=== PATIENT | male | born 1945 | race Caucasian/White ===

== ENCOUNTER 2016-08-30 07:52 | Outpatient (CLI) | payer MEDICARE | END 2016-08-30 07:53 | disposition home or self-care (01) | DX: D64.9 Anemia, unspecified (principal); M54.5 Low back pain; I12.9 Hypertensive chronic kidney disease with stage 1 through stage 4 chronic kidney disease, or unspecified chronic kidney disease; R73.01 Impaired fasting glucose; N18.2 Chronic kidney disease, stage 2 (mild); E78.5 Hyperlipidemia, unspecified ==

== ENCOUNTER 2016-10-28 13:05 | Day surgery (SDC) | payer MEDICARE ==
[2016-10-28] MEDS ORDERED: LACTATED RINGERS 1,000 ML IV ONE (14:16)
[2016-10-28] MEDS ORDERED: fentaNYL 100 MCG/2 ML VIAL IVP ONE (16:04)
[2016-10-28] MEDS ORDERED: MIDAZOLAM 2 MG/2 ML VIAL IVP ONE (16:04)
== END 2016-10-28 13:06 | disposition home or self-care (01) ==
PROC: 0DJD8ZZ Inspection of Lower Intestinal Tract, Via Natural or Artificial Opening Endoscopic (ICD-10-PCS; principal; 2016-10-28 15:15)
DX: Z12.11 Encounter for screening for malignant neoplasm of colon (principal); K64.8 Other hemorrhoids; K57.30 Diverticulosis of large intestine without perforation or abscess without bleeding; Z86.010 Personal history of colon polyps; G47.30 Sleep apnea, unspecified; I10 Essential (primary) hypertension; G43.909 Migraine, unspecified, not intractable, without status migrainosus
CPT/HCPCS: G0105; J7120

== ENCOUNTER 2016-12-30 09:28 | Outpatient (CLI) | payer MEDICARE ==
--- NOTE | 2016-12-30 12:52 | MRI Report ---
EXAM: MRI LUMBAR SPINE WITHOUT CONTRAST EXAM DATE: 12/30/2016 10:27 AM. CLINICAL HISTORY: Degenerative disk disease, lumbar spine, low back. Left-sided sciatica pain. Chroni c over the last 2 months. Intermittent for a few years. History of basal cell cancer. COMPARISON: Lumbar spine plain films 09/24/2013. TECHNIQUE: Multiplanar, multisequence T1-weighted and fluid-sensitive sequences of the lumbar spine f rom T12 to S1 without contrast. Other: None. FINDINGS: Spinal Cord: The conus terminates at L1. No signal abnormality in the visualized spinal cord. Alignment: 22 degree levorotatory scoliosis is seen centered at L2-L3. Mild, 4 mm, retrolisthesis is seen at L3-L4 and L4-L5. Bone Marrow: Five [id number] lumbar vertebral bodies are assumed. No gross fractures or bone les ions. No bone marrow edema. Diskogenic endplate irregularity with Modic type I signal changes seen at L2-L3. Diskogenic endplate irregularity with Modic type II signal change is seen at L3-L4 and L4-L5. Disk Levels/Facets: T12-L1: Unremarkable on sagittal series. L1-L2: Mild loss of disk space height is seen. Minimal dorsal and mild ventral circumferential disk b ulge is seen. Anterior osteophyte formation is noted. Mild effacement of descending left L2 nerve linden t is seen without lateral recess stenosis. L2-L3: Moderate right-sided and mild left-sided degenerative facet change is seen. Mild loss of disk space height is present. Diskogenic endplate irregularity and signal abnormality is seen. Mild dorsal and moderate ventral and right lateral circumferential disk bulge is seen. Moderate anterior and rig ht lateral osteophyte formation is seen. Effacement of the thecal sac with crowding of cauda equina n erve roots is seen. Mild canal stenosis. L3-L4: Mild to moderate degenerative facet changes seen bilaterally. Moderate loss of disk space heig ht is seen. Mild retrolisthesis. Patchy lateral and anterior osteophyte formation is seen. Effacement of the thecal sac and descending L4 nerve roots is seen. L4-L5: Mild right-sided and moderate left-sided degenerative facet change is seen. Moderate loss of d isk space height is seen. Moderate left lateral and anterior lateral osteophyte formation is seen. Mi ld retrolisthesis. Effacement of the thecal sac is noted. Effacement of exiting left L4 nerve root is seen. Moderate left foraminal stenosis. L5-S1: Mild degenerative facet changes seen bilaterally. Mild to moderate loss of disk space height i s seen. Moderate left lateral and mild ventral disk bulge is seen. Left lateral osteophyte formation is noted. Effacement of exited left L5 nerve root lateral to the foramen is seen. No stenosis. Musculature: Normal. No edema or fatty atrophy. Other: The partially visualized retroperitoneum is unremarkable. IMPRESSION: 1. Mild levorotatory scoliosis of the lumbar spine. Mild spondylotic retrolisthesis is seen at L3-L4 and L4-L5. 2. Spondylosis throughout the lumbar spine as discussed above. Degenerative disk and facet changes se en. 3. L2-L3: Mild canal stenosis. 4. L4-L5: Moderate left foraminal stenosis. Comment: The following findings are so common in adults without low back pain that while we report th eir presence, they must be interpreted with caution and in the context of the clinical situation. (Re tamie Mora et al, Spine 2001) Prevalence of findings in patients without low back pain: Disk degeneration (any evidence): 92% Disk desiccation/T2 signal loss: 83% Disk height loss: 56% Disk bulge: 64% Disk protrusion: 32% Annular tear/high intensity zone: 38% [facility] Referring Provider Line: [phone] SITE ID: [id number]
== END 2016-12-30 09:29 | disposition home or self-care (01) ==
LOC: DI 09:28
PROVIDERS: ATTEND Family Medicine
DX: M51.36 Other intervertebral disc degeneration, lumbar region (principal); M47.896 Other spondylosis, lumbar region; M43.16 Spondylolisthesis, lumbar region; M47.897 Other spondylosis, lumbosacral region; M41.86 Other forms of scoliosis, lumbar region
CPT/HCPCS: 72148

== ENCOUNTER 2017-09-15 08:00 | Outpatient (CLI) | payer MEDICARE ==
[2017-09-15 17:48] LABS: BASOPHILS % (AUTO) 1.2 %; EOSINOPHILS # (AUTO) 0.1 10^3/uL (0.0-0.7); EOSINOPHILS % (AUTO) 2.6 %; HGB - HEMOGLOBIN 13.1 g/dL (14.0-18.0); LYMPHOCYTES % (AUTO) 34.8 %; MEAN CORPUSCULAR HEMOGLOBIN 26.6 pg (27.0-31.0); MEAN CORPUSCULAR HGB CONC 32.6 g/dL (32.0-36.0); MEAN CORPUSCULAR VOLUME 81.7 fL (80.0-94.0); MEAN PLATELET VOLUME 8.8 fL (7.4-11.4); MONOCYTES # (AUTO) 0.3 10^3/uL (0.0-1.0); MONOCYTES % (AUTO) 11.2 %; NEUTROPHILS # (AUTO) 1.4 10^3/uL (1.5-6.6); NEUTROPHILS % (AUTO) 50.2 %; PLT - PLATELET COUNT 192 10^3/uL (130-450); RED BLOOD COUNT 4.93 10^6/uL (4.70-6.10); RED CELL DISTRIBUTION WIDTH 13.9 % (12.0-15.0); WHITE BLOOD COUNT 2.8 x10^3/uL (4.8-10.8)
[2017-09-15 17:49] LABS: ALBUMIN 4.1 g/dL (3.2-5.5); ALBUMIN/GLOBULIN RATIO 1.6 (1.0-2.2); ALKALINE PHOSPHATASE 41 IU/L (42-121); ALT ALANINE AMINOTRANSFERASE 19 IU/L (10-60); AST ASPARTATE AMINOTRANSFERASE 20 IU/L (10-42); BILIRUBIN,TOTAL 0.8 mg/dL (0.2-1.0); BUN - BLOOD UREA NITROGEN 18 mg/dL (6-20); CALCIUM 8.7 mg/dL (8.5-10.3); CARBON DIOXIDE - CO2 27 mmol/L (21-32); CHLORIDE 104 mmol/L (101-111); CHOL/HDL RATIO 3.7 (<5.0); CHOLESTEROL 185 mg/dL; CREATININE 0.8 mg/dL (0.6-1.2); GFR - MDRD 96 (>89); GLUCOSE 89 mg/dL (70-100); HDL CHOLESTEROL 50 mg/dL; LDL CHOLESTEROL,CALCULATED 113 mg/dL; LDL/HDL RATIO 2.3 (<3.6); SODIUM 138 mmol/L (135-145); TOTAL PROTEIN 6.7 g/dL (6.7-8.2); VLDL CHOLESTEROL 22 mg/dL
[2017-09-15 18:03] LABS: HB2 TOTAL 13.8 g/dL; HEMOGLOBIN A1C 0.49 g/dL; HEMOGLOBIN A1C % 5.4 % (4.6-6.2)
[2017-09-15 18:47] LABS: DIFFERENTIAL COMMENT MANUAL=AUTO DIFF; PLATELET ESTIMATE, MANUAL NORMAL (130-450,000) (NORMAL); PLATELET MORPHOLOGY NORMAL APPEARANCE (NORMAL); RBC MORPHOLOGY (MULTIPLE) NORMAL APPEARANCE (NORMAL)
== END 2017-09-15 08:01 | disposition home or self-care (01) ==
LOC: LAB.S 08:00
PROVIDERS: ATTEND Family Medicine
DX: D64.9 Anemia, unspecified (principal); R73.01 Impaired fasting glucose; N18.2 Chronic kidney disease, stage 2 (mild); E78.5 Hyperlipidemia, unspecified; I12.9 Hypertensive chronic kidney disease with stage 1 through stage 4 chronic kidney disease, or unspecified chronic kidney disease; E55.9 Vitamin D deficiency, unspecified; Z12.5 Encounter for screening for malignant neoplasm of prostate
CPT/HCPCS: 36415; 80053; 80061; 82306; 82728; 83036; 85025; G0103; 83721; 84153

== ENCOUNTER 2018-03-24 09:41 | Outpatient (CLI) | payer MEDICARE ==
[2018-03-24 18:54] LABS: ALBUMIN 4.1 g/dL (3.2-5.5); ALBUMIN/GLOBULIN RATIO 1.6 (1.0-2.2); ALKALINE PHOSPHATASE 47 IU/L (42-121); ALT ALANINE AMINOTRANSFERASE 21 IU/L (10-60); AST ASPARTATE AMINOTRANSFERASE 20 IU/L (10-42); BILIRUBIN,TOTAL 1.1 mg/dL (0.2-1.0); BUN - BLOOD UREA NITROGEN 14 mg/dL (6-20); CALCIUM 9.1 mg/dL (8.5-10.3); CARBON DIOXIDE - CO2 30 mmol/L (21-32); CHLORIDE 100 mmol/L (101-111); CHOL/HDL RATIO 4.3 (<5.0); CHOLESTEROL 213 mg/dL; GFR - MDRD 74 (>89); GLUCOSE 100 mg/dL (70-100); HDL CHOLESTEROL 50 mg/dL; LDL CHOLESTEROL,CALCULATED 137 mg/dL; LDL/HDL RATIO 2.7 (<3.6); SODIUM 138 mmol/L (135-145); TOTAL PROTEIN 6.7 g/dL (6.7-8.2); VLDL CHOLESTEROL 26 mg/dL
== END 2018-03-24 09:42 | disposition home or self-care (01) ==
LOC: LAB.F 09:41
PROVIDERS: ATTEND Internal Medicine
DX: E78.5 Hyperlipidemia, unspecified (principal); Z12.5 Encounter for screening for malignant neoplasm of prostate
CPT/HCPCS: 36415; 80053; 80061; G0103; 83721; 84153

== ENCOUNTER 2019-07-13 07:26 | Outpatient (CLI) | payer MEDICARE ==
[2019-07-13 10:18] LABS: ALBUMIN/GLOBULIN RATIO 1.4 (1.0-2.2); ALKALINE PHOSPHATASE 46 IU/L (42-121); ALT ALANINE AMINOTRANSFERASE 17 IU/L (10-60); AST ASPARTATE AMINOTRANSFERASE 19 IU/L (10-42); BILIRUBIN,TOTAL 1.2 mg/dL (0.2-1.0); BUN - BLOOD UREA NITROGEN 14 mg/dL (6-20); CALCIUM 9.1 mg/dL (8.5-10.3); CARBON DIOXIDE - CO2 29 mmol/L (21-32); CHLORIDE 100 mmol/L (101-111); CHOL/HDL RATIO 3.8 (<5.0); CHOLESTEROL 199 mg/dL; CREATININE 1.2 mg/dL (0.6-1.2); GFR - MDRD 60 (>89); GLUCOSE 105 mg/dL (70-100); HDL CHOLESTEROL 53 mg/dL; LDL CHOLESTEROL,CALCULATED 116 mg/dL; LDL/HDL RATIO 2.2 (<3.6); SODIUM 137 mmol/L (135-145); TOTAL PROTEIN 6.9 g/dL (6.7-8.2); VLDL CHOLESTEROL 30 mg/dL
[2019-07-13 10:28] LABS: HB2 TOTAL 15.1 g/dL; HEMOGLOBIN A1C 0.64 g/dL
== END 2019-07-13 07:27 | disposition home or self-care (01) ==
LOC: LAB.S 07:26
PROVIDERS: ATTEND Internal Medicine
DX: E78.5 Hyperlipidemia, unspecified (principal); R73.01 Impaired fasting glucose; Z12.5 Encounter for screening for malignant neoplasm of prostate
CPT/HCPCS: 36415; 80053; 80061; 83036; G0103; 83721; 84153

== ENCOUNTER 2020-08-25 07:01 | Outpatient (CLI) | payer MEDICARE ==
[2020-08-25 15:27] LABS: BASOPHILS # (AUTO) 0.1 10^3/uL (0.0-0.1); BASOPHILS % (AUTO) 1.7 %; EOSINOPHILS # (AUTO) 0.2 10^3/uL (0.0-0.7); EOSINOPHILS % (AUTO) 4.4 %; HCT - HEMATOCRIT 40.2 % (42.0-52.0); LYMPHOCYTES # (AUTO) 1.3 10^3/uL (1.5-3.5); MEAN CORPUSCULAR HEMOGLOBIN 26.1 pg (27.0-31.0); MEAN CORPUSCULAR HGB CONC 29.9 g/dL (32.0-36.0); MEAN CORPUSCULAR VOLUME 87.4 fL (80.0-94.0); MEAN PLATELET VOLUME 10.5 fL (7.4-11.4); MONOCYTES # (AUTO) 0.4 10^3/uL (0.0-1.0); MONOCYTES % (AUTO) 9.9 %; NEUTROPHILS # (AUTO) 1.8 10^3/uL (1.5-6.6); NEUTROPHILS % (AUTO) 48.7 %; PLT - PLATELET COUNT 196 10^3/uL (130-450); WHITE BLOOD COUNT 3.6 x10^3/uL (4.8-10.8)
[2020-08-25 15:52] LABS: ALBUMIN/GLOBULIN RATIO 1.5 (1.0-2.2); ALKALINE PHOSPHATASE 44 IU/L (42-121); ALT ALANINE AMINOTRANSFERASE 18 IU/L (10-60); AST ASPARTATE AMINOTRANSFERASE 20 IU/L (10-42); BILIRUBIN,TOTAL 0.8 mg/dL (0.2-1.0); BUN - BLOOD UREA NITROGEN 16 mg/dL (6-20); CALCIUM 9.1 mg/dL (8.5-10.3); CARBON DIOXIDE - CO2 28 mmol/L (21-32); CHLORIDE 105 mmol/L (101-111); CHOL/HDL RATIO 3.7 (<5.0); CHOLESTEROL 197 mg/dL; CREATININE 1.1 mg/dL (0.6-1.2); GFR - MDRD 66 (>89); GLUCOSE 110 mg/dL (70-100); HDL CHOLESTEROL 53 mg/dL; LDL CHOLESTEROL,CALCULATED 118 mg/dL; LDL/HDL RATIO 2.2 (<3.6); POTASSIUM 4.3 mmol/L (3.5-5.0); SODIUM 140 mmol/L (135-145); TOTAL PROTEIN 6.7 g/dL (6.7-8.2); TRIGLYCERIDES 131 mg/dL; VLDL CHOLESTEROL 26 mg/dL
== END 2020-08-25 07:02 | disposition home or self-care (01) ==
LOC: LAB.S 07:01
PROVIDERS: ATTEND Internal Medicine
DX: I10 Essential (primary) hypertension (principal); Z12.5 Encounter for screening for malignant neoplasm of prostate
CPT/HCPCS: 36415; 80053; 80061; 85025; G0103; 83721; 84153

== ENCOUNTER 2021-02-28 07:06 | Outpatient (CLI) | payer MEDICARE ==
[2021-02-28 15:15] LABS: BASOPHILS # (AUTO) 0.1 10^3/uL (0.0-0.1); BASOPHILS % (AUTO) 1.5 %; EOSINOPHILS # (AUTO) 0.2 10^3/uL (0.0-0.7); EOSINOPHILS % (AUTO) 5.1 %; HCT - HEMATOCRIT 43.2 % (42.0-52.0); HGB - HEMOGLOBIN 13.2 g/dL (14.0-18.0); LYMPHOCYTES # (AUTO) 1.2 10^3/uL (1.5-3.5); LYMPHOCYTES % (AUTO) 36.3 %; MEAN CORPUSCULAR HEMOGLOBIN 27.2 pg (27.0-31.0); MEAN CORPUSCULAR HGB CONC 30.6 g/dL (32.0-36.0); MEAN CORPUSCULAR VOLUME 89.1 fL (80.0-94.0); MONOCYTES # (AUTO) 0.4 10^3/uL (0.0-1.0); MONOCYTES % (AUTO) 11.1 %; NEUTROPHILS # (AUTO) 1.5 10^3/uL (1.5-6.6); NEUTROPHILS % (AUTO) 45.7 %; PLT - PLATELET COUNT 197 10^3/uL (130-450); RED BLOOD COUNT 4.85 10^6/uL (4.70-6.10); RED CELL DISTRIBUTION WIDTH 13.8 % (12.0-15.0); WHITE BLOOD COUNT 3.3 x10^3/uL (4.8-10.8)
== END 2021-02-28 07:07 | disposition home or self-care (01) ==
LOC: LAB.S 07:06
PROVIDERS: ATTEND Internal Medicine
DX: D64.9 Anemia, unspecified (principal)
CPT/HCPCS: 36415; 85025

== ENCOUNTER 2021-09-04 07:08 | Outpatient (CLI) | payer MEDICARE ==
[2021-09-04 15:03] LABS: BASOPHILS % (AUTO) 0.9 %; EOSINOPHILS # (AUTO) 0.2 10^3/uL (0.0-0.7); EOSINOPHILS % (AUTO) 4.9 %; HCT - HEMATOCRIT 43.1 % (42.0-52.0); HGB - HEMOGLOBIN 13.7 g/dL (14.0-18.0); LYMPHOCYTES # (AUTO) 1.3 10^3/uL (1.5-3.5); LYMPHOCYTES % (AUTO) 35.9 %; MEAN CORPUSCULAR HEMOGLOBIN 27.8 pg (27.0-31.0); MEAN CORPUSCULAR HGB CONC 31.8 g/dL (32.0-36.0); MEAN CORPUSCULAR VOLUME 87.4 fL (80.0-94.0); MEAN PLATELET VOLUME 10.3 fL (7.4-11.4); MONOCYTES # (AUTO) 0.4 10^3/uL (0.0-1.0); MONOCYTES % (AUTO) 10.6 %; NEUTROPHILS # (AUTO) 1.6 10^3/uL (1.5-6.6); NEUTROPHILS % (AUTO) 47.1 %; PLT - PLATELET COUNT 188 10^3/uL (130-450); RED BLOOD COUNT 4.93 10^6/uL (4.70-6.10); RED CELL DISTRIBUTION WIDTH 13.3 % (12.0-15.0); WHITE BLOOD COUNT 3.5 x10^3/uL (4.8-10.8)
[2021-09-04 15:15] LABS: ALBUMIN 4.1 g/dL (3.2-5.5); ALBUMIN/GLOBULIN RATIO 1.6 (1.0-2.2); ALKALINE PHOSPHATASE 44 IU/L (42-121); ALT ALANINE AMINOTRANSFERASE 19 IU/L (10-60); AST ASPARTATE AMINOTRANSFERASE 21 IU/L (10-42); BILIRUBIN,TOTAL 0.8 mg/dL (0.2-1.0); BUN - BLOOD UREA NITROGEN 20 mg/dL (6-20); CALCIUM 8.9 mg/dL (8.5-10.3); CARBON DIOXIDE - CO2 28 mmol/L (21-32); CHLORIDE 101 mmol/L (101-111); CHOL/HDL RATIO 3.9 (<5.0); CHOLESTEROL 223 mg/dL; CREATININE 1.1 mg/dL (0.6-1.2); GFR - MDRD 65 (>89); GLUCOSE 101 mg/dL (70-100); HDL CHOLESTEROL 57 mg/dL; LDL CHOLESTEROL,CALCULATED 136 mg/dL; LDL/HDL RATIO 2.4 (<3.6); SODIUM 137 mmol/L (135-145); TOTAL PROTEIN 6.6 g/dL (6.7-8.2); TRIGLYCERIDES 149 mg/dL; VLDL CHOLESTEROL 30 mg/dL
== END 2021-09-04 07:09 | disposition home or self-care (01) ==
LOC: LAB.S 07:08
PROVIDERS: ATTEND Internal Medicine
DX: I10 Essential (primary) hypertension (principal); E78.5 Hyperlipidemia, unspecified; D64.9 Anemia, unspecified
CPT/HCPCS: 36415; 80053; 80061; 82728; 83721; 85025

== ENCOUNTER 2022-10-15 07:07 | Outpatient (CLI) | payer MEDICARE ==
[2022-10-15 14:47] LABS: BASOPHILS % (AUTO) 0.6 %; EOSINOPHILS # (AUTO) 0.1 10^3/uL (0.0-0.7); EOSINOPHILS % (AUTO) 3.5 %; HCT - HEMATOCRIT 44.4 % (42.0-52.0); HGB - HEMOGLOBIN 13.9 g/dL (14.0-18.0); LYMPHOCYTES # (AUTO) 1.2 10^3/uL (1.5-3.5); LYMPHOCYTES % (AUTO) 35.3 %; MEAN CORPUSCULAR HEMOGLOBIN 27.4 pg (27.0-31.0); MEAN CORPUSCULAR HGB CONC 31.3 g/dL (32.0-36.0); MEAN CORPUSCULAR VOLUME 87.4 fL (80.0-94.0); MEAN PLATELET VOLUME 10.1 fL (7.4-11.4); MONOCYTES # (AUTO) 0.4 10^3/uL (0.0-1.0); MONOCYTES % (AUTO) 12.5 %; NEUTROPHILS # (AUTO) 1.6 10^3/uL (1.5-6.6); NEUTROPHILS % (AUTO) 47.2 %; PLT - PLATELET COUNT 196 10^3/uL (130-450); RED BLOOD COUNT 5.08 10^6/uL (4.70-6.10); RED CELL DISTRIBUTION WIDTH 13.9 % (12.0-15.0); WHITE BLOOD COUNT 3.4 x10^3/uL (4.8-10.8)
[2022-10-15 15:10] LABS: ALBUMIN 3.9 g/dL (3.2-5.5); ALBUMIN/GLOBULIN RATIO 1.4 (1.0-2.2); ALKALINE PHOSPHATASE 42 IU/L (42-121); ALT ALANINE AMINOTRANSFERASE 21 IU/L (10-60); AST ASPARTATE AMINOTRANSFERASE 19 IU/L (10-42); BILIRUBIN,TOTAL 0.7 mg/dL (0.2-1.0); BUN - BLOOD UREA NITROGEN 20 mg/dL (6-20); CALCIUM 8.8 mg/dL (8.5-10.3); CARBON DIOXIDE - CO2 29 mmol/L (21-32); CHLORIDE 108 mmol/L (101-111); CHOL/HDL RATIO 3.2 (<5.0); CHOLESTEROL 195 mg/dL; GFR - MDRD 73 (>89); GLUCOSE 107 mg/dL (70-100); HDL CHOLESTEROL 61 mg/dL; LDL CHOLESTEROL,CALCULATED 114 mg/dL; LDL/HDL RATIO 1.9 (<3.6); POTASSIUM 4.4 mmol/L (3.5-5.0); SODIUM 142 mmol/L (135-145); TOTAL PROTEIN 6.7 g/dL (6.7-8.2); TRIGLYCERIDES 100 mg/dL; VLDL CHOLESTEROL 20 mg/dL
== END 2022-10-15 07:08 | disposition home or self-care (01) ==
LOC: LAB.S 07:07
PROVIDERS: ATTEND Internal Medicine
DX: G25.81 Restless legs syndrome (principal); E78.5 Hyperlipidemia, unspecified; I10 Essential (primary) hypertension
CPT/HCPCS: 36415; 80053; 80061; 82728; 83721; 85025

== ENCOUNTER 2023-09-02 08:01 | Outpatient (CLI) | payer MEDICARE ==
[2023-09-02 15:17] LABS: BASOPHILS % (AUTO) 0.8 %; EOSINOPHILS # (AUTO) 0.1 10^3/uL (0.0-0.7); EOSINOPHILS % (AUTO) 3.1 %; HCT - HEMATOCRIT 43.9 % (42.0-52.0); HGB - HEMOGLOBIN 14.1 g/dL (14.0-18.0); LYMPHOCYTES # (AUTO) 1.4 10^3/uL (1.5-3.5); LYMPHOCYTES % (AUTO) 37.8 %; MEAN CORPUSCULAR HEMOGLOBIN 28.1 pg (27.0-31.0); MEAN CORPUSCULAR HGB CONC 32.1 g/dL (32.0-36.0); MEAN CORPUSCULAR VOLUME 87.6 fL (80.0-94.0); MEAN PLATELET VOLUME 9.8 fL (7.4-11.4); MONOCYTES # (AUTO) 0.4 10^3/uL (0.0-1.0); MONOCYTES % (AUTO) 9.4 %; NEUTROPHILS # (AUTO) 1.8 10^3/uL (1.5-6.6); NEUTROPHILS % (AUTO) 48.4 %; PLT - PLATELET COUNT 202 10^3/uL (130-450); RED BLOOD COUNT 5.01 10^6/uL (4.70-6.10); RED CELL DISTRIBUTION WIDTH 13.7 % (12.0-15.0); WHITE BLOOD COUNT 3.8 x10^3/uL (4.8-10.8)
[2023-09-02 17:03] LABS: ALBUMIN/GLOBULIN RATIO 1.6 (1.0-2.2); ALKALINE PHOSPHATASE 48 IU/L (42-121); ALT ALANINE AMINOTRANSFERASE 23 IU/L (10-60); AST ASPARTATE AMINOTRANSFERASE 21 IU/L (10-42); BILIRUBIN,TOTAL 0.7 mg/dL (0.2-1.0); BUN - BLOOD UREA NITROGEN 19 mg/dL (6-20); CALCIUM 9.5 mg/dL (8.5-10.3); CARBON DIOXIDE - CO2 31 mmol/L (21-32); CHLORIDE 104 mmol/L (101-111); CHOL/HDL RATIO 4.1 (<5.0); CHOLESTEROL 204 mg/dL; CREATININE 1.2 mg/dL (0.6-1.3); GFR - MDRD 59 (>89); GLUCOSE 94 mg/dL (74-104); HDL CHOLESTEROL 50 mg/dL; LDL CHOLESTEROL,CALCULATED 121 mg/dL; LDL/HDL RATIO 2.4 (<3.6); POTASSIUM 4.6 mmol/L (3.5-4.5); SODIUM 139 mmol/L (135-145); TOTAL PROTEIN 6.5 g/dL (6.4-8.9); TRIGLYCERIDES 166 mg/dL (48-352); VLDL CHOLESTEROL 33 mg/dL
[2023-09-02 22:40] LABS: ESTIMATED AVERAGE GLUCOSE 114 mg/dL (70-100); HEMOGLOBIN A1c% 5.6 % (4.27-6.07)
== END 2023-09-02 08:02 | disposition home or self-care (01) ==
LOC: LAB.S 08:01
PROVIDERS: ATTEND Internal Medicine
DX: I10 Essential (primary) hypertension (principal); E78.5 Hyperlipidemia, unspecified; R73.01 Impaired fasting glucose; D64.9 Anemia, unspecified; Z12.5 Encounter for screening for malignant neoplasm of prostate
CPT/HCPCS: 36415; 80053; 80061; 83036; 85025; G0103; 83721; 84153

== ENCOUNTER 2023-11-27 12:14 | Outpatient (CLI) | payer MEDICARE | END 2023-11-27 12:15 | disposition home or self-care (01) | LOC: SC 12:14 | PROVIDERS: ATTEND Nurse Practitioner Family | DX: G47.33 Obstructive sleep apnea (adult) (pediatric) (principal); R09.02 Hypoxemia; E66.9 Obesity, unspecified; Z68.32 Body mass index [BMI] 32.0-32.9, adult | CPT/HCPCS: G0399 ×2; 95806 ==

== ENCOUNTER 2023-12-04 14:01 | Outpatient (CLI) | payer MEDICARE ==
--- NOTE | 2023-12-04 14:45 | SLEEP CARE CONSULTATION ---
Information from patient questionnaire entered by Kira Maki. I have reviewed and concur with the information entered by Kira Maki. This document represents the service I personally performed and the decisions made by , Rebekah Lincoln ARNP. History of Present Illness Service Date and Time: 12/04/2023 1401 Initial [place] Sleepiness Scale score: 5 (10/16/23) Current [place] Sleepiness Scale score: 5 (12/04/23) Additional HPI information: HANNAH LYNCH returns for follow up and results of the recently performed home sleep study. The sleep study showed mild obstructive sleep apnea with an average AHI of 14.9 and christi oxygen saturation of 72%. I explained the pathophysiology behind obstructive sleep apnea. We then spent quite a bit of time discussing different treatment options. For mild obstructive sleep apnea, surgery and oral appliance are alternatives to nasal CPAP therapy but in moderate or severe cases, nasal CPAP is the most effective and reliable treatment. I reviewed the impact of weight changes on sleep apnea and strongly recommended losing weight. Sleep Study - Results Type of Sleep Study: Home sleep study (COMPLETED 11/27/23) Prior sleep studies: Yes Polysomnography/Home Sleep Study results: Physician Impression: The quality of the study is good. The length of the study is adequate (> 240 minutes). Please also see the tabulated and graphic data. 1. Obstructive Sleep Apnea-Hypopnea (ICD-10 G47.33), mild, with an AHI of 14.9/hr and christi SaO2 of 72%. During the study, the patient had 32 apneas (32 obstructive, 0 central, 0 mixed) and 33 hypopneas. The longest episode lasted 82.0 seconds. The respiratory events occurred independently of sleep stage and body position (supine AHI was 14.3 and non-supine, 17.68). 2. Hypoxemia (ICD-10 R09.02), moderate, with the lowest oxygen saturation of 72 % and 75.4 minutes with SaO2 under 90%. Baseline oxygen saturation was normal (Average oxygen saturation was 90%). Allergies and Home Medications Known drug allergies: Yes (as listed) Drug allergies reviewed: Yes Home medication list reviewed: Yes (no changes) Allergy and home medication list: Allergies lisinopril Adverse Reaction (Verified 12/04/23 10:08) Unknown cough Review of Systems Review of systems same as previous: Yes (back surgery December 2023) Physical Exam Vital signs obtained and entered by: KIRA Serrano MA Blood Pressure: 141/83 (RIGHT ARM) Cuff size: regular Heart Rate: 63 O2 Saturation: 96 Height: 5 ft 11 in Weight: 234 lb 3.2 oz Body Mass Index: 32.6 BMI Classification: Obese Impression and Plan 1. Obstructive Sleep Apnea-Hypopnea Syndrome, mild, with lowest oxygen saturation of 72%. Positive pressure therapy could benefit hypertension, cardiac disease, gastric reflux and RLS. Hannah was not convinced that he has sleep apnea even after I presented the results of his sleep study. I did strongly r ecommend treatment, including CPAP and oral mandibular advancement device. I also offered to have him repeat study in sleep lab. He declined everything at this time. He is concerned how this might affect his surgery in December. He will follow up with us should he decide to pursue any treatment. 2. Hypoxemia, moderate, with a christi oxygen saturation of 72% and 75.4 minutes spent under 90%. The baseline oxygen saturation was normal with an average oxygen saturation of 90%. 3. Obesity, unspecified. Currently patients BMI is 32.6. Obesity increases the risk of apnea, CPAP pressure requirements and overall health risks especially cardiovascular and diabetes. * Patient declined treatment at this time * Attempt to lose weight. * Return as needed for further evaluation and treatment for his RODERICK. Counseling Topics: Weight loss health impact Follow up with Sleep Care in: as needed Visit Type: In Office Time Spent with Patient (minutes): 22 Provider Statement: I spent 100% of the Face to Face Visit with the patient with greater than 50% spent counseling the patient and coordination of care.
[2023-12-04 14:46] VITALS: BP 141/83; O2SAT 96
== END 2023-12-04 14:02 | disposition home or self-care (01) ==
LOC: SC 14:01
PROVIDERS: ATTEND Nurse Practitioner Family
DX: G47.33 Obstructive sleep apnea (adult) (pediatric) (principal); R09.02 Hypoxemia; E66.9 Obesity, unspecified; Z68.32 Body mass index [BMI] 32.0-32.9, adult
CPT/HCPCS: 99213; G0463; 99212

== ENCOUNTER 2023-12-31 07:02 | Outpatient (CLI) | payer MEDICARE ==
[2023-12-31 14:55] LABS: EOSINOPHILS # (AUTO) 0.2 10^3/uL (0.0-0.7); HCT - HEMATOCRIT 45.5 % (42.0-52.0); LYMPHOCYTES # (AUTO) 1.3 10^3/uL (1.5-3.5); LYMPHOCYTES % (AUTO) 31.7 %; MEAN CORPUSCULAR HEMOGLOBIN 27.7 pg (27.0-31.0); MEAN CORPUSCULAR HGB CONC 30.8 g/dL (32.0-36.0); MEAN CORPUSCULAR VOLUME 89.9 fL (80.0-94.0); MEAN PLATELET VOLUME 10.4 fL (7.4-11.4); MONOCYTES # (AUTO) 0.4 10^3/uL (0.0-1.0); MONOCYTES % (AUTO) 10.2 %; NEUTROPHILS # (AUTO) 2.1 10^3/uL (1.5-6.6); NEUTROPHILS % (AUTO) 52.6 %; PLT - PLATELET COUNT 195 10^3/uL (130-450); RED BLOOD COUNT 5.06 10^6/uL (4.70-6.10)
[2023-12-31 15:51] LABS: CALCIUM 9.3 mg/dL (8.5-10.3); POTASSIUM 4.6 mmol/L (3.5-4.5)
[2023-12-31 22:53] LABS: ESTIMATED AVERAGE GLUCOSE 114 mg/dL (70-100); HEMOGLOBIN A1c% 5.6 % (4.27-6.07)
== END 2023-12-31 07:03 | disposition home or self-care (01) ==
LOC: LAB.S 07:02
PROVIDERS: ATTEND Family Medicine
DX: Z01.812 Encounter for preprocedural laboratory examination (principal); R73.9 Hyperglycemia, unspecified
CPT/HCPCS: 36415; 80048; 83036; 85025

== ENCOUNTER 2024-01-13 19:11 | Emergency (ER) | payer MEDICARE ==
--- NOTE | 2024-01-13 20:10 | ED Physician Documentation ---
PD HPI LOWER EXT INJURY - Stated complaint Stated Complaint: LT FOOT PX - Chief complaint Chief Complaint: Ext Problem - Additional information Additional information: 78-year-old male With history of hypertension, hypercholesterolemia, chronic vision loss, osteoarthritis presents emergency department for left leg/thigh swelling. He had spinal surgery 01/05/2024 Without any complications. Patient says overall he has been recovering well he has been using walker as advised but he started noticing some left lower extremity pain and swelling yesterday. He originally went to the clinic who sent him to the emergency department for a venous duplex to rule out possible DVT. Patient also states while he was in the waiting room he started to experience some chest pain to his mid sternum area. No history of PE or DVTs, his sister did of a pulmonary embolism when she is around her 60s. No known diagnoses of any blood clotting disorders no known cancer. PD PAST MEDICAL HISTORY - Past Medical History Past Medical History: Yes Cardiovascular: Hypertension, High cholesterol Respiratory: None Endocrine/Autoimmune: None GI: Colon polyps : None HEENT: Chronic vision loss Psych: None Musculoskeletal: Osteoarthritis, Chronic back pain Derm: None - Past Surgical History General: Colonoscopy Ortho: Spine surgery, Other HEENT: Cataracts Derm: Skin cancer surgery - Present Medications Home Medications: Ambulatory Orders Medication Instructions Recorded Confirmed Gabapentin 600 mg PO QPM 10/28/16 11/18/23 Losartan [Cozaar] 50 mg PO DAILY 10/28/16 11/18/23 Simvastatin 20 mg PO QPM 10/28/16 11/18/23 Omeprazole See Rx Instructions .ROUTE .COMPLEX 11/13/23 11/18/23 Rivaroxaban [Xarelto] 15 mg PO BID 21 Days #42 tablet 01/13/24 - Allergies Allergies/Adverse Reactions: Allergies Allergy/AdvReac Type Severity Reaction Status Date / Time lisinopril AdvReac Unknown Verified 01/13/24 19:34 - Social History Does the pt smoke?: No Smoking Status: Never smoker Does the pt drink ETOH?: Yes Does the pt have substance abuse?: No - Immunizations Immunizations are current?: Yes - POLST Patient has POLST: No PD ED PE NORMAL - Vitals Vital signs reviewed: Yes - General General: Alert and oriented X 3, No acute distress, Well developed/nourished - HEENT HEENT: Atraumatic - Cardiac Cardiac: RRR, No murmur, Strong equal pulses, Other (paced HR) - Respiratory Respiratory: No respiratory distress, Clear bilaterally - Abdomen Abdomen: Soft, Non tender - Back Back: No CVA TTP - Derm Derm: Normal color, Warm and dry, No rash - Extremities Extremities: Other (LLE swelling from thigh down) Results - Vitals Vitals: Vital Signs - 24 hr 01/13/24 01/13/24 19:28 23:48 Temperature 36.4 C L Heart Rate 59 L 63 Respiratory 18 18 Rate Blood Pressure 144/78 H 148/82 H O2 Saturation 98 100 Oxygen O2 Source Room air - EKG (time done) 2014 EKG releavant findings:: EKG personally interpreted by author of this note. Relevant findings are: Rate: Rate (enter#) (62) Rhythm: Other (A-V dual paced) Ischemia: Normal ST segments Computer interpretation: Agree with computer - Labs Labs: Laboratory Tests 01/13/24 01/13/24 20:58 20:58 WBC 8.3 RBC 4.40 L Hgb 12.2 L Hct 38.6 L MCV 87.7 MCH 27.7 MCHC 31.6 L RDW 13.4 Plt Count 188 MPV 9.0 Neut # (Auto) 5.9 Lymph # (Auto) 1.4 L [place] # (Auto) 0.7 Eos # (Auto) 0.1 Baso # (Auto) 0.0 Absolute Nucleated RBC 0.00 Nucleated RBC % 0.0 Sodium 137 Potassium 4.5 Chloride 102 Carbon Dioxide 30 Anion Gap 5.0 L BUN 20 Creatinine 1.0 Estimated GFR (MDRD) 72 L Glucose 111 H Calcium 9.4 Magnesium 1.8 Total Bilirubin 0.6 AST 12 ALT 23 Alkaline Phosphatase 52 Total Protein 6.5 Albumin 3.9 Globulin 2.6 Albumin/Globulin Ratio 1.5 Lipase < 10 L - Rads (name of study) Angio chest with and without Relevant Findings:: Final report received, EMP independent interpretation of test, Other (Acute pulmonary emboli involving the right middle and right lower lobe pulmonary arteries without evidence of acute right heart strain. No pulmonary infarction.) Left lower extremity venous duplex Relevant Findings:: Final report received, EMP independent interpretation of test, Other (Deep venous fibrosis of the popliteal vein extending to the calf) PD Medical Decision Making - ED course ED course: 78-year-old male presents emergency department for left lower extremity pain and swelling after surgical procedure about a week ago. Venous duplex was complete and does reveal a DVT of the popliteal vein extending into the calf. Patient also reported that he was having some chest pain so CT chest angio with contrast was also complete for further evaluation of possible pulmonary embolism and patient does appear to have acute pulmonary emboli involving the right middle and right lower lobe pulmonary arteries without evidence of acute right sided heart failure strain. We ambulated patient with pulse ox and that he had no hypoxia with ambulation. Patient denies any shortness of breath with ambulation as well. He was started on Lovenox shot here in the emergency department for anticoagulation. Pesi score 87 points. With shared decision making patient is overall very well-appearing very reliable for patient as well as his a prescription of Eliquis was sent to patient's preferred pharmacy and they were given very strict return precautions. He is very hemodynamically stable he has no hypoxia no tachycardia stable blood pressure. Patient was told to let his primary care provider know tomorrow about today's ER visit and new pulmonary embolism and DVT and told if he feels any worse or if symptoms get any worse to present back to the emergency department immediately. Patient as well as his are very reliable And understand return precautions. Departure - Departure Disposition: 01 Home, Self Care Clinical Impression: DVT (deep venous thrombosis), Pulmonary embolism Instructions: Rivaroxaban oral tablets, Embolism Pulmonary Dc Prescriptions: Rivaroxaban [Xarelto] 15 mg PO BID 21 Days #42 tablet Comments: Thank you for trusting us with your care. We have identified that you have a DVT on your left lower extremity as well as a pulmonary embolism without right heart strain. Please let your surgeon know about today's findings and please follow-up with your primary care provider to let them know about your DVT and pulmonary embolism. We have given you Lovenox shot here in the emergency department tonight and we are starting you on Eliquis tomorrow you will take this twice a day for the next 21 days and then your primary care provider will need to order a refill for 20 mg once daily. Please have a very low threshold to come back to the emergency department if you have any worsening symptoms and be very cautious to prevent from falls and know that you are at risk for bleeding. Forms: PCP List Discharge Date/Time: 01/13/24 23:50
[2024-01-13 21:04] LABS: BASOPHILS % (AUTO) 0.4 %; EOSINOPHILS # (AUTO) 0.1 10^3/uL (0.0-0.7); EOSINOPHILS % (AUTO) 1.6 %; HCT - HEMATOCRIT 38.6 % (42.0-52.0); HGB - HEMOGLOBIN 12.2 g/dL (14.0-18.0); LYMPHOCYTES # (AUTO) 1.4 10^3/uL (1.5-3.5); LYMPHOCYTES % (AUTO) 16.7 %; MEAN CORPUSCULAR HEMOGLOBIN 27.7 pg (27.0-31.0); MEAN CORPUSCULAR HGB CONC 31.6 g/dL (32.0-36.0); MEAN CORPUSCULAR VOLUME 87.7 fL (80.0-94.0); MONOCYTES # (AUTO) 0.7 10^3/uL (0.0-1.0); MONOCYTES % (AUTO) 8.3 %; NEUTROPHILS # (AUTO) 5.9 10^3/uL (1.5-6.6); NEUTROPHILS % (AUTO) 71.1 %; PLT - PLATELET COUNT 188 10^3/uL (130-450); RED CELL DISTRIBUTION WIDTH 13.4 % (12.0-15.0); WHITE BLOOD COUNT 8.3 x10^3/uL (4.8-10.8)
[2024-01-13] MEDS: ENOXAPARIN 100 MG/ML SYRINGE SUBQ STA (21:10)
[2024-01-13 21:16] LABS: ALBUMIN 3.9 g/dL (3.2-5.5); ALBUMIN/GLOBULIN RATIO 1.5 (1.0-2.2); ALKALINE PHOSPHATASE 52 IU/L (42-121); ALT ALANINE AMINOTRANSFERASE 23 IU/L (10-60); AST ASPARTATE AMINOTRANSFERASE 12 IU/L (10-42); BILIRUBIN,TOTAL 0.6 mg/dL (0.2-1.0); BUN - BLOOD UREA NITROGEN 20 mg/dL (6-20); CALCIUM 9.4 mg/dL (8.5-10.3); CARBON DIOXIDE - CO2 30 mmol/L (21-32); CHLORIDE 102 mmol/L (101-111); GFR - MDRD 72 (>89); GLUCOSE 111 mg/dL (74-104); MAGNESIUM 1.8 mg/dL (1.7-2.3); POTASSIUM 4.5 mmol/L (3.5-4.5); SODIUM 137 mmol/L (135-145); TOTAL PROTEIN 6.5 g/dL (6.4-8.9)
[2024-01-13 21:18] LABS: LIPASE < 10 U/L (11-82)
[2024-01-13] MEDS ORDERED: iohexoL-300 100 ML VIAL ONE (21:33)
--- NOTE | 2024-01-13 21:55 | Ultrasound Report ---
PROCEDURE: Duplex Ext Veins Left INDICATIONS: atraumatic LLE swelling TECHNIQUE: Real-time imaging, as well as color and pulse Doppler interrogation, were performed of the lower extr emity deep veins from the inguinal ligament to the popliteal fossa. Attempted visualization of the ca lf veins was performed. COMPARISON: None. FINDINGS: There is an occlusive filling defect within the popliteal vein, extending into the proximal calf veins. The superficial femoral vein and common femoral vein are widely patent. IMPRESSION: Deep venous thrombosis of the popliteal vein extending to the calf veins. Agree with preliminary interpretation provided to the ordering provider by the ultrasound technologis t. Reviewed by: Kirill Yang MD on 01/13/2024 9:54 PM PDT Approved by: Kirill Yang MD on 01/13/2024 9:54 PM PDT Station ID: [id number]
[2024-01-13] MEDS: iohexoL-300 100 ML VIAL IVP ONE (22:19)
--- NOTE | 2024-01-13 22:55 | CT Report ---
PROCEDURE: Angio Chest INDICATIONS: +DVT, new onset chest pain CONTRAST: OMNI 300, 80mls TECHNIQUE: After the administration of intravenous contrast, 2 mm axial images were acquired from the pulmonary apices to the posterior costophrenic angles during the arterial phase. In addition, 1 mm lung kernel and 5 mm soft tissue kernel reconstructions were performed. 3-dimensional coronal oblique maximum int ensity projection (MIP) reformats, 8 mm axial MIP, and 5 mm coronal and sagittal MPR reformats were t hen performed through the thorax. For radiation dose reduction, the following was used: automated exp osure control, adjustment of mA and/or kV according to patient size. COMPARISON: None. FINDINGS: Image quality: Diagnostic. Large vessels: There are acute pulmonary emboli extending to the proximal lobar pulmonary arteries of the right middle and right lower lobes. Emboli do not appear to extend to the distal right main pulm onary artery. Mild enlargement of the main pulmonary artery without evidence for acute right-sided he art strain. Lungs and pleura: No consolidation. The patient atelectasis. No central pleural effusions. No pneumo thorax. No suspicious pulmonary nodules which require follow up. No septal thickening or nodularity. Mediastinum: Heart size is mildly enlarged. No pericardial effusion. No large vessel abnormality. No mediastinal adenopathy by size criteria. Chest wall and lower neck: Thyroid is unremarkable. No axillary or supraclavicular adenopathy by size . Bones: No aggressive osseous abnormality. Upper Abdomen: Unremarkable. Small hiatal hernia IMPRESSION: Acute pulmonary emboli involving the right middle and right lower lobar pulmonary arteries without ev idence for acute right-sided heart strain or pulmonary infarction. Other chronic findings as above. Findings discussed telephonically with Dr. Van at 2253 hrs. Reviewed by: Joaquin Nova MD on 01/13/2024 10:54 PM PDT Approved by: Joaquin Nova MD on 01/13/2024 10:54 PM PDT Station ID: [id number]
[2024-01-13 23:56] VITALS: BP 148/82; O2SAT 100
== END 2024-01-13 23:50 | disposition home or self-care (01) ==
LOC: ED 19:11
DX: I82.432 Acute embolism and thrombosis of left popliteal vein (principal); I10 Essential (primary) hypertension; E78.00 Pure hypercholesterolemia, unspecified; Z86.010 Personal history of colon polyps; Z79.01 Long term (current) use of anticoagulants; Z79.899 Other long term (current) drug therapy
CPT/HCPCS: 36415; 71275; 80053; 83690; 83735; 85025; 93005; 93971; 96372; 99284; J1650; Q9967